=== PATIENT | female | born 1950 | race Caucasian/White ===

== ENCOUNTER 2020-04-22 13:59 | Outpatient (CLI) | payer MEDICARE, OTHER, SELFPAY ==
--- NOTE | ~2020-04-22 | MM_ITS ---
EXAMINATION: MM screening [facility] BI w rosanna HISTORY: Screening mammogram TECHNIQUE: Craniocaudal and mediolateral oblique 3-D tomosynthesis images were obtained and synthetic 2-D images were generated. CAD analysis was submitted and interpreted. COMPARISON: 10/18/2018, 06/12/2016 BREAST PARENCHYMAL COMPOSITION: The breasts are almost entirely fatty. FINDINGS: There is no evidence of suspicious mass, calcification, or architectural distortion to sugg est malignancy in either breast. There has been no suspicious interval change. IMPRESSION: 1. No mammographic evidence of malignancy. 2. Recommend routine screening mammography in one year. BI-RADS Category 1: Negative Reviewed, dictated and finalized at location A.
== END 2020-04-22 14:00 | disposition home or self-care (01) ==
PROVIDERS: PCP Internal Medicine; Visit Provider Internal Medicine
DX: Z12.31 Encounter for screening mammogram for malignant neoplasm of breast (principal)
CPT/HCPCS: 77063; 77067

== ENCOUNTER 2020-10-05 13:40 | Outpatient (CLI) | payer MEDICARE, OTHER, SELFPAY ==
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
== END 2020-10-05 13:41 | disposition home or self-care (01) ==
LOC: CHSIMG 13:44
PROVIDERS: PCP Internal Medicine; Visit Provider Internal Medicine
DX: M54.5 Low back pain (principal); M54.10 Radiculopathy, site unspecified
CPT/HCPCS: 72100

== ENCOUNTER 2021-04-15 14:22 | Outpatient (CLI) | payer MEDICARE, OTHER, SELFPAY ==
--- NOTE | ~2021-04-15 | XR_ITS ---
EXAMINATION: XR abdomen obstructive series DATE: 04/15/2021 14:44 INDICATION: Abdominal pain and constipation. Weight gain. TECHNIQUE: Supine and upright views of the abdomen. FINDINGS: No prior studies for comparison. The visualized lung parenchyma is normal.. There is a nonobstructive bowel gas pattern. Large amount of retained fecal material in the colon. Gas and stool are seen throughout the colon to the level of the rectum. There is no free air. Severe lumbar spondylosis with scoliosis. IMPRESSION: 1. No acute abdominal abnormality. Reviewed, dictated and finalized at location A.
== END 2021-04-15 14:23 | disposition home or self-care (01) ==
LOC: CHSIMG 14:25
PROVIDERS: PCP Internal Medicine; Visit Provider Nurse Practitioner Family
DX: R10.9 Unspecified abdominal pain (principal); K59.00 Constipation, unspecified
CPT/HCPCS: 74019

== ENCOUNTER 2022-01-30 11:53 | Outpatient (CLI) | payer MEDICARE, OTHER, SELFPAY ==
--- NOTE | ~2022-01-30 | XR_ITS ---
XR knee LT 3V 01/30/2022 12:39 Indication: Left knee pain. Patellar fracture 2 weeks ago. Procedure: 3 views of the left knee Comparison: No prior studies for comparison. Findings: There are transverse fractures of the patella without significant displacement. No signific ant joint effusion. No other fracture. No significant soft tissue abnormality. No foreign body. Impression: 1: Nondisplaced transverse fracture of the patella. Reviewed, dictated and finalized at location A. Impression: 1: Nondisplaced transverse fracture of the patella.
== END 2022-01-30 11:54 | disposition home or self-care (01) ==
LOC: CHSIMG 11:57
PROVIDERS: PCP Internal Medicine; Visit Provider Internal Medicine
DX: S82.002D Unspecified fracture of left patella, subsequent encounter for closed fracture with routine healing (principal)
CPT/HCPCS: 73562

== ENCOUNTER 2022-04-04 08:56 | Outpatient (CLI) | payer MEDICARE, OTHER, SELFPAY ==
--- NOTE | ~2022-04-04 | XR_ITS ---
EXAMINATION: XR chest 2V DATE: 04/04/2022 10:18 INDICATION: Chest and epigastric pain TECHNIQUE: Frontal and lateral views of the chest are obtained COMPARISON: 01/27/2015 FINDINGS: The lungs are free of acute opacities. No pleural effusion or pneumothorax. The cardiomedia stinal silhouette is normal. There is moderate thoracic spondylosis. Contrast from esophagram perform ed immediately prior to the chest radiograph is seen in the stomach and proximal small intestine. IMPRESSION: 1. No acute cardiopulmonary abnormality. Reviewed, dictated and finalized at location B.
--- NOTE | ~2022-04-04 | XR_ITS ---
EXAMINATION: XR barium swallow DATE: 04/04/2022 10:17 INDICATION: Dyspepsia TECHNIQUE: The patient drank thick barium, gas-producing crystals, and thin barium. Fluoroscopy of th e hypopharynx and esophagus was performed. Fluoroscopy exposure time was 1.5 minutes. The DAP for thi s procedure was 6.36 Gycm2. COMPARISON: None. FINDINGS: There is no mass or stricture of the esophagus. Esophageal motility is normal. There is no hiatal hernia. There was no gastroesophageal reflux with provocative maneuvers. IMPRESSION: 1. Unremarkable esophagram. Reviewed, dictated and finalized at location B. IMPRESSION: 1. Unremarkable esophagram.
--- NOTE | ~2022-04-04 | US_ITS ---
EXAMINATION: US abdomen limited DATE: 04/04/2022 09:41 INDICATION: Dyspepsia. Chest pain. TECHNIQUE: Multiple grayscale and Doppler ultrasound images of the abdomen were obtained. COMPARISON: None FINDINGS: The visualized portion of the pancreatic body is normal. Portions of the head and tail are obscured b y shadowing bowel gas. Visualized proximal inferior vena cava is normal. Liver has normal echogenicit y and contour, with a smooth surface. No liver lesion identified. No intrahepatic biliary duct dilati on suspected. Portal venous flow was seen in the hepatopetal, normal direction and has normal Doppler waveform. The gallbladder is normal in appearance. There is no cholelithiasis. The common bile duct measures 2-3 mm, which is normal. Sonographic Newton sign was reported as negative by the sonographe r. Visualized portion of the right kidney demonstrates normal echogenicity and contour with no hydron ephrosis. IMPRESSION: 1. Normal right upper quadrant ultrasound. Reviewed, dictated and finalized at location A.
== END 2022-04-04 08:57 | disposition home or self-care (01) ==
PROVIDERS: PCP Internal Medicine; Visit Provider Internal Medicine
DX: R10.13 Epigastric pain (principal); R07.9 Chest pain, unspecified
CPT/HCPCS: 71046; 74220; 76705

== ENCOUNTER 2022-10-19 11:58 | Outpatient (CLI) | payer MEDICARE, OTHER, SELFPAY ==
--- NOTE | ~2022-10-19 | MM_ITS ---
EXAMINATION: MM screening [facility] BI w rosanna HISTORY: Screening TECHNIQUE: Craniocaudal and mediolateral oblique 3-D tomosynthesis images were obtained and synthetic 2-D images were generated. CAD analysis was submitted and interpreted. COMPARISON: Comparison to multiple prior studies sequentially, with oldest reviewed study dated 04/14. BREAST PARENCHYMAL COMPOSITION: The breasts are almost entirely fatty. FINDINGS: There is no evidence of suspicious mass, calcification, or architectural distortion to sugg est malignancy in either breast. There has been no suspicious interval change. IMPRESSION: 1. No mammographic evidence of malignancy. 2. Recommend routine screening mammography in one year. BI-RADS Category 1: Negative Reviewed, dictated and finalized at location A.
== END 2022-10-19 11:59 | disposition home or self-care (01) ==
LOC: CHSIMG 12:00
PROVIDERS: PCP Internal Medicine; Visit Provider Internal Medicine
DX: Z12.31 Encounter for screening mammogram for malignant neoplasm of breast (principal)
CPT/HCPCS: 77063; 77067

== ENCOUNTER 2023-01-16 01:04 | Day surgery (SDC) | payer MEDICARE, OTHER, SELFPAY ==
[2023-01-08 13:05] VITALS: BMI 29.2
--- NOTE | 2023-01-15 13:13 | WPDANESEPPF ---
Anes - Initial Pre Proc Eval Procedure: Operation Date: 01/16/23 09:00 Proposed Procedures p Colonoscopy - Edmundo Hook MD Date/Time: 01/15/23 13:13 Surgeon: Edmundo Hook MD Pre Op Diagnosis: hx colon polyps Patient Data Age: 72 Gender: F Height: 1.68 m Weight: 82 kg Allergies Allergy/AdvReac Type Severity Reaction Status Date / Time codeine Allergy Unknown Unknown Verified 01/16/23 07:44 red dye Allergy Unknown extreme Verified 01/16/23 07:44 emesis and incontinence Home Medications Medication Instructions Recorded Confirmed Type ascorbate calcium (vitamin C) 500 100 mg PO DAILY 09/17/20 01/16/23 History mg tablet aspirin 81 mg tablet,delayed 81 mg PO DAILY 09/17/20 01/16/23 History release (Adult Low Dose Aspirin) diphenhydramine HCl 25 mg tablet 25 mg PO HS PRN Sleep 09/17/20 01/16/23 History (Benadryl Allergy) mirabegron 50 mg tablet,extended 50 mg PO HS 09/17/20 01/16/23 History release 24 hr (Myrbetriq) montelukast 10 mg tablet 10 mg PO HS 09/17/20 01/16/23 History naltrexone 50 mg tablet 50 mg PO DAILY 09/17/20 01/16/23 History bupropion HCl 100 mg tablet 100 mg PO DAILY 06/06/21 01/16/23 History levothyroxine 150 mcg capsule 150 mcg PO DAILY 06/06/21 01/16/23 History Lactobacillus 1 cap PO DAILY 01/08/23 01/16/23 History acidophilus-Bifidobac.animalis 2.5 billion cell capsule (Daily Probiotic) acetaminophen 325 mg tablet 325 mg PO Q4H PRN Pain 01/08/23 01/16/23 History albuterol sulfate 90 mcg/actuation 1 puff inhalation Q4H PRN 01/08/23 01/16/23 History aerosol inhaler Shortness Of Breath cyclobenzaprine 5 mg tablet 5 mg PO DAILY PRN Muscle Spasm 01/08/23 01/16/23 History docusate sodium 100 mg capsule 200 mg PO HS 01/08/23 01/16/23 History esomeprazole magnesium 40 mg 40 mg PO HS 01/08/23 01/16/23 History capsule,delayed release loratadine-pseudoephedrine ER 10 1 tablet PO DAILY 01/08/23 01/16/23 History mg-240 mg tablet,extended [id number] (Claritin-D 24 Hour) magnesium 500 mg tablet 500 mg PO DAILY 01/08/23 01/16/23 History multivitamin with minerals-folic 1 tablet PO DAILY 01/08/23 01/16/23 History acid 0.4 mg tablet polyethylene glycol 3350 17 17 g PO DAILY 01/08/23 01/16/23 History gram/dose oral powder (Miralax) rosuvastatin 20 mg tablet 20 mg PO HS 01/08/23 01/16/23 History Patient hx anesthesia problems: none Family hx anesthesia problems: none Results Review: All pre-operative results and documents have been reviewed as part of the pre-operative evaluation. [facility] Past Medical History Medical History (Updated 01/15/23 @ 13:14 by Ken Mackey DO) Asthma Belching Change in stool caliber Chronic constipation Dyslipidemia Epigastric pain Functional dyspepsia Gastric ulcer Hx of adenomatous polyp of colon Hypothyroidism Internal hemorrhoid Overweight (BMI 25.0-29.9) Scoliosis Family History Family History Mother Family history of thyroid disease Family history of obesity Family history of cataracts Family history of arthritis Family history of kidney disease Family history of congestive heart failure Family history of heart disease in male family member before age 55 Father Family history of obesity Family history of cataracts Family history of arthritis Family history of kidney disease Family history of Parkinson's disease Family history of Alzheimer's disease Family history of heart disease in male family member before age 55 Family history of hearing loss Social History Social History Smoking status: Former smoker Tobacco type: cigarettes Alcohol intake: current Drinks per week: 2 Substance use: current Substance use type: marijuana Other substance usage details: eidbles Living arrangements: with family Spiritual care conc
[2023-01-16 07:35] VITALS: BP 127/77; PULSE 86; RESP 18; TEMP 36.4; O2SAT 98; BMI 30.2
[2023-01-16] MEDS: LACTATED RINGERS 1,000 ML 150 ML IV CONT (07:57)
--- NOTE | 2023-01-16 09:08 | PM.HPGS ---
History of Present Illness History of Present Illness Consent: Risks, benefits, and alternatives have been discussed and questions answered. Patient agrees to proceed with procedure. Chief complaint: hx colon polyps Narrative: Kaelyn Barbour is a 72 year old female with polyps, last colonoscopy in 2018 Review of Systems Constitutional: Constitutional: Denies headache(s) and Denies weakness Eyes: Eyes: Denies blurry vision ENT: Reports Normal hearing present, Denies headache(s) and Denies neck pain Cardiovascular: Cardiovascular: Denies chest pain and Denies dyspnea Respiratory: Respiratory: Denies dyspnea Gastrointestinal: Gastrointestinal: Reports no additional gastrointestinal complaints Genitourinary: Genitourinary: Denies dysuria Musculoskeletal: Musculoskeletal: Denies neck pain Integumentary/Breasts: Skin/Breast: Denies dry skin Neurologic: Reports Normal hearing present, Denies headache(s) and Denies weakness Psychiatric: Psychiatric: Denies anxiety Endocrine: Endocrine: Denies change in body appearance Hematologic/Lymphatic: Hematologic/Lymphatic: Denies easy bleeding Allergic/Immunologic: Allergic/Immunologic: Denies urticaria PMFSH Past Medical History Medical History (Updated 01/15/23 @ 13:14 by Ken Mackey DO) Asthma Belching Change in stool caliber Chronic constipation Dyslipidemia Epigastric pain Functional dyspepsia Gastric ulcer Hx of adenomatous polyp of colon Hypothyroidism Internal hemorrhoid Overweight (BMI 25.0-29.9) Scoliosis Family History Family History Mother Family history of thyroid disease Family history of obesity Family history of cataracts Family history of arthritis Family history of kidney disease Family history of congestive heart failure Family history of heart disease in male family member before age 55 Father Family history of obesity Family history of cataracts Family history of arthritis Family history of kidney disease Family history of Parkinson's disease Family history of Alzheimer's disease Family history of heart disease in male family member before age 55 Family history of hearing loss Social History Social History Smoking status: Former smoker Tobacco type: cigarettes Alcohol intake: current Drinks per week: 2 Substance use: current Substance use type: marijuana Other substance usage details: eidbles Living arrangements: with family Spiritual care concerns: No Meds Home Medications and Allergies Home Medications Medication Instructions Recorded Confirmed Type ascorbate calcium (vitamin C) 500 100 mg PO DAILY 09/17/20 01/16/23 History mg tablet aspirin 81 mg tablet,delayed 81 mg PO DAILY 09/17/20 01/16/23 History release (Adult Low Dose Aspirin) diphenhydramine HCl 25 mg tablet 25 mg PO HS PRN Sleep 09/17/20 01/16/23 History (Benadryl Allergy) mirabegron 50 mg tablet,extended 50 mg PO HS 09/17/20 01/16/23 History release 24 hr (Myrbetriq) montelukast 10 mg tablet 10 mg PO HS 09/17/20 01/16/23 History naltrexone 50 mg tablet 50 mg PO DAILY 09/17/20 01/16/23 History bupropion HCl 100 mg tablet 100 mg PO DAILY 06/06/21 01/16/23 History levothyroxine 150 mcg capsule 150 mcg PO DAILY 06/06/21 01/16/23 History Lactobacillus 1 cap PO DAILY 01/08/23 01/16/23 History acidophilus-Bifidobac.animalis 2.5 billion cell capsule (Daily Probiotic) acetaminophen 325 mg tablet 325 mg PO Q4H PRN Pain 01/08/23 01/16/23 History albuterol sulfate 90 mcg/actuation 1 puff inhalation Q4H PRN 01/08/23 01/16/23 History aerosol inhaler Shortness Of Breath cyclobenzaprine 5 mg tablet 5 mg PO DAILY PRN Muscle Spasm 01/08/23 01/16/23 History docusate sodium 100 mg capsule 200 mg PO HS 01/08/23 01/16/23 History esomeprazole magnesium 40 mg 40 mg PO HS 01/08/23 01/16/23 History cap
[2023-01-16 09:35] VITALS: BP 105/62; PULSE 82; RESP 20; O2SAT 98
[2023-01-16 09:45] VITALS: BP 114/76; PULSE 80; RESP 20; O2SAT 100
[2023-01-16 09:55] VITALS: BP 126/74; PULSE 78; RESP 20; O2SAT 100
== END 2023-01-16 10:01 | disposition home or self-care (01) ==
PROVIDERS: PCP Internal Medicine; Visit Provider Internal Medicine Gastroenterology
PROC: 0DJD8ZZ Inspection of Lower Intestinal Tract, Via Natural or Artificial Opening Endoscopic (ICD-10-PCS; CPT 45378; principal; 2023-01-16 09:00)
DX: Z12.11 Encounter for screening for malignant neoplasm of colon (principal); K64.8 Other hemorrhoids; Z86.010 Personal history of colon polyps; J45.909 Unspecified asthma, uncomplicated; E78.5 Hyperlipidemia, unspecified; E03.9 Hypothyroidism, unspecified; Z87.891 Personal history of nicotine dependence; F12.90 Cannabis use, unspecified, uncomplicated; Z79.82 Long term (current) use of aspirin; Z79.51 Long term (current) use of inhaled steroids
CPT/HCPCS: G0105; J2704; J7120

== ENCOUNTER 2024-03-07 09:05 | Outpatient (CLI) | payer MEDICARE, SELFPAY ==
[2024-03-07 09:19] LABS: Hemoglobin 14.4 g/dL (11.7-13.8); Mean Corpuscular HGB Conc 32.7 g/dL (32-36); Mean Corpuscular Hemoglobin 30.9 pg (27.0-31.0); Mean Corpuscular Volume 94.4 fL (78.0-102.0); Mean Platelet Volume 9.1 fl (9.2-11.8); Platelet Count Result 220 K/mm3 (150-420); Red Blood Count 4.66 M/mm3 (4.20-5.40); Red Cell Distribution Width 12.7 % (11.6-14.4); White Blood Count 4.7 K/mm3 (4.8-10.8)
[2024-03-07 10:29] LABS: Alanine Aminotransferase 33 U/L (14-59); Albumin Level 3.7 g/dL (3.4-5.0); Alkaline Phosphatase 83 U/L (46-116); Anion Gap 7 mmol/L (4-12); Aspartate Amino Transferase 27 U/L (15-37); Bilirubin,Total 0.3 mg/dL (0.00-1.00); Blood Urea Nitrogen 24 mg/dL (7-18); Calcium 8.8 mg/dL (8.5-10.1); Carbon Dioxide 29 mmol/L (21-32); Chloride 102 mmol/L (98-108); Cholesterol 184 mg/dL (0-200); Estimated Glomerular Filt Rate 46; Glucose 102 mg/dL (70-99); HDL Direct 53 mg/dL (40-60); LDL Cholesterol Calculated 109 mg/dL (<130); Osmolality Calculated 290 mOsm/kg (285-295); Potassium 4.5 mmol/L (3.5-5.1); Sodium 138 mmol/L (136-145); Thyroid Stimulating Hormone 1.21 uIU/mL (0.36-3.74); Total Protein 7.1 g/dL (6.4-8.2); Triglycerides 108 mg/dL (0-150)
== END 2024-03-07 09:06 | disposition home or self-care (01) ==
LOC: CHSLAB 09:09
PROVIDERS: PCP Internal Medicine; Visit Provider Internal Medicine
DX: E78.5 Hyperlipidemia, unspecified (principal); E03.9 Hypothyroidism, unspecified; N39.0 Urinary tract infection, site not specified
CPT/HCPCS: 36415; 80053; 80061; 84443; 85027

== ENCOUNTER 2025-01-26 14:13 | Outpatient (CLI) | payer MEDICARE, OTHER, SELFPAY ==
--- NOTE | ~2025-01-26 | XR_ITS ---
Lumbosacral Spine: AP and lateral views Clinical History: Pain COMPARISON: 10/05/2020 Findings: Dextroscoliosis present, similar to prior exam. There is severe degenerative disc narrowing throughout the lumbar spine. There is severe facet arthropathy throughout the lumbar spine. No defin ite fracture evident. The sacroiliac joints are normally outlined. Impression: Severe degenerative spondylosis throughout the lumbar spine with associated dextroscoliosis. Findings are similar to prior exam. Reviewed, dictated and finalized at location M. Impression: Severe degenerative spondylosis throughout the lumbar spine with associated dex troscoliosis. Findings are similar to prior exam.
--- NOTE | ~2025-01-26 | XR_ITS ---
Thoracic spine: Clinical Indication: Back pain AP and lateral views were performed. No fracture is seen. There is normal alignment of the vertebrae. There is multilevel mild to moderat e degenerative disc narrowing throughout the thoracic spine. Paravertebral soft tissues appear normal . Impression: Multilevel mild to moderate degenerative disc narrowing throughout the thoracic spine. Reviewed, dictated and finalized at location . Impression: Multilevel mild to moderate degenerative disc narrowing throughout the thoracic spine.
--- OUTSIDE RECORDS SUMMARY | 2025-01-26 14:20 | XMS_ITS | Clinical Summary ---
Author Organization [facility] Address [address] [place] [id number] Care Team Providers Care Flanging Machine Operator Name Role Phone Reza Esquivel MD Primary Care Provider [phone] Allergies Active Allergy Reactions Criticality Noted Date Comments Codeine Hallucinations 02/06/2022 Red Dye #40 (Allura Red) Nausea Only 02/06/2022 Medications rosuvastatin (CRESTOR) 20 MG tablet Take 1 tablet by mouth daily. 2 Active Mirabegron (MYRBETRIQ OR) Take 1 tablet by mouth every evening. 9 Active ESOMEPRAZOLE MAGNESIUM OR Take 1 tablet by mouth every evening. 2 Active aspirin EC (ECOTRIN) 81 MG tablet Take 81 mg by mouth daily. Active montelukast (SINGULAIR) 10 MG tablet Take 10 mg by mouth daily. Active levothyroxine (SYNTHROID) 150 MCG tablet Take 1 tablet by mouth daily. 2 Active naltrexone (DEPADE) 50 MG tablet Take 1 tablet by mouth daily. 2 Active buPROPion (WELLBUTRIN) 100 MG tablet Take 1 tablet by mouth daily. 2 Active albuterol sulfate HFA 108 (90 Base) MCG/ACT inhaler Inhale 2 puffs into the lungs as needed. 2 Active Glucosamine-Cho ndroitin 9088-0283 MG/30ML Liquid Take 1 tablet by mouth daily. Active Ascorbic Acid 1000 MG Tab Take 1,000 mg by mouth daily. Active azelastine (ASTELIN) 0.1 % nasal spray 2 sprays by Nasal route 2 (two) times daily. 1 Active calcium carbonate 1250 (500 Ca) MG chewable tablet Chew 1 tablet by mouth. Active Magnesium Gluconate 500 MG Tab Take 1,000 mg by mouth 2 (two) times daily. Active mometasone (NASONEX) 50 MCG/ACT nasal spray 2 sprays by Tube route daily. 2 Active docusate sodium (COLACE) 100 MG capsule Take 100 mg by mouth 2 (two) times daily. Active diphenhydrAMINE (BENADRYL) 25 MG tablet Take 25 mg by mouth every 6 (six) hours as needed for Itching. Active loratadine (CLARITIN) 10 MG tablet Take 10 mg by mouth daily. Active PREMARIN 0.625 MG/GM vaginal cream Place 1 mg vaginally as needed. 2 Active Active Problems Problem Noted Date Diagnosed Date Other closed fracture of lef t patella with routine healing, subsequent encounter 02/06/2022 Family History Relation Status Comments Brother Alive Father Mother Social History Tobacco Use Types Packs/Day Years Used Date Smoking Tobacco: Former Smokeless Tobacco: Never Comments Unknown Sex and Gender Information Value Date Recorded Sex Assigned at Not on file Legal Sex Female 8:59 AM CDT Gender Identity Not on file Sexual Orientation Not on file Last Filed Vital Signs Vital Sign Reading Time Taken Comments Blood Pressure - - Pulse - - Temperature - - Respiratory Rate - - Oxygen Saturation - - Inhaled Oxygen Concentration - - Weight 81.6 kg (180 lb) 04/12/2022 10:42 AM CDT Height 165.1 cm (5' 5) 04/12/2022 10:42 AM CDT Body Mass Index 29.95 04/12/2022 10:42 AM CDT Plan of Treatment Health Maintenance Due Date Last Done Comments Colorectal Cancer Screening Colonoscopy (10 Years) 1950 Hepatitis C 1968 Mammogram Screening 1990 Zoster Vaccines (2 of 3) 08/04/2014 06/09/2014 Annual Medicare Wellness Visit 2015 Dexa Scan (General) 2015 Pneumococcal Vaccine: 50+ Years (3 of 3 - PCV20 or PCV21) 08/14/2021 08/14/2016, 05/20/2009 COVID-19 Vaccine ( - season) 2024 11/09/2021, 04/26/2021, 09/18/2020, Additional history exists RSV Immunization or 60+ Years (1 - 1-dose 75+ series) 2025 DTaP, Tdap and Td Vaccines (2 - Td or Tdap) 08/06/2025 08/06/2015, 06/26/2006 Meningococcal B Vaccine Aged Out No l onger eligible based on patient's age to complete this topic Meningococcal Vaccine Aged Out No meli marge eligible based on patient's age to complete this topic RSV Immunizations Under 20 Months Aged Out No longer eligible based on patient's age to complete this topic Insurance MEDICARE [place] [id number] Care Teams Flanging Machine Operator Relationship Specialty Start Date End Date Reza Esquivel MD [address] [place] [id number] PCP - General INTERNAL MEDICINE 01/31/22
--- OUTSIDE RECORDS SUMMARY | 2025-01-26 14:20 | XMS_ITS | Clinical Summary ---
Author Organization [facility] Address [address], [address] [address] Phone Care Team Providers Care Boat Builder Name Role Phone Reza Esquivel MD Primary Care Provider [phone] Allergies Active Allergy Reactions Criticality Noted Date Comments Codeine Hallucinations 11/29/2017 Medications losartan (COZAAR) 25 MG Tablet 11/07/2017 Active metoprolol Succinate (TOPROL-XL) 25 MG TABLET SR 24 HR 11/28/2017 Active montelukast (SINGULAIR) 10 MG Tablet 09/02/2017 Active mometasone (NASONEX) 50 MCG/ACT Suspension 11/09/2017 Active raNITIdine (ZANTAC) 150 MG Tablet 10/05/2017 Active levothyroxine (SYNTHROID) 200 MCG Tablet Take 200 mcg by mouth daily. Active aspirin EC 81 MG Tablet Delayed Response Take 81 mg by mouth daily. Active Family History Medical History Relation Name Comments Heart Attack Father Heart Attack Mother Relation Name Status Comments Father Mother Social History Tobacco Use Types Packs/Day Years Used Date Smoking Tobacco: Former Cigarettes 08 21 1 5 - 1994 Smokeless Tobacco: Never Alcohol Use Standard Drinks/Week Comments Yes 0 (1 standard drink = 0.6 oz pur e alcohol) rarely Sexually Active Control Partners Comments Yes Comments Unknown Sex and Gender Information Value Date Recorded Sex Assigned at Not on file Legal Sex Female 10:31 PM CDT Gender Identity Not on file Sexual Orientation Not on file 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 Not on file Not o n file Last Filed Vital Signs Vital Sign Reading Time Taken Comments Blood Pressure 110/76 12/31/2017 9:42 AM CDT Pulse 77 12/31/2017 9:42 AM CDT Temperature 36 C (96.8 F) 12/31/2017 9:42 AM CDT Respiratory Rate 18 12/31/2017 9:42 AM CDT Oxygen Saturation 99% 12/31/2017 9:42 AM CDT Inhaled Oxygen Concentration - - Weight 94.8 kg (209 lb) 11/29/2017 9:00 AM CDT Height 165.1 cm (5' 5) 11/29/2017 9:00 AM CDT Body Mass Index 34.78 11/29/2017 9:00 AM CDT Plan of Treatment Health Maintenance Due Date Last Done Comments Hepatitis C Virus (HCV) Screening 1950 TdaP Immunization 1950 Cologuard 1995 Immunochemical Fecal Occult Blood 1995 Pneumococcal Immunization (5 0+ years) (1 of 1 - PCV) 2000 Zoster Immunization (1 of 2) 2000 Colonoscopy 12/31/2022 12/31/2017 Colorectal Cancer Screening 12/31/2022 SARS-COV-2 Immunization ( - 2023- season) 2024 Influenza Immunization (Seas on Ended) 2025 Respiratory Syncytial Virus (RSV) Immunization (Adult) (1 - 1-dose 75+ series) 2025 Hepatitis B Immunization Aged Out No longer eligible based on patient's age to complete this topic Human Papillomavirus (HPV) Immunization Aged Out No longer eligible b ased on patient's age to complete this topic Meningococcal Immunization (ACWY) Aged Out No longer eligible based on patient's age to complete this topic Rotavirus Immunization Aged Out No lo nger eligible based on patient's age to complete this topic Insurance MEDICARE [employer] Care Teams Boat Builder Relationship Specialty Start Date End Date Reza Esquivel MD [address] [place] [address] PCP - General Internal Medicine 11/23/17
--- OUTSIDE RECORDS SUMMARY | 2025-01-26 14:21 | XMS_ITS | Encounter Summary ---
Author Organization [facility] Address [address] [place] [address] Care Team Providers Care Python Engineer Name Role Phone Reza Esquivel MD Primary Care Provider [phone] Encounter Details Date Type Department Care Team (Late st Contact Info) Description 02/06/2022 Oktat Message Enc [address] [place] [address] Vera Ramirez, [facility] [address] [place] [address] Visit Follow Up Social History Tobacco Use Types Packs/Day Years Used Date Smoking Tobacco: Former Smokeless Tobacco: Never Comments Unknown Sex and Gender Information Value Date Recorded Sex Assigned at Not on file Legal Sex Female 8:59 AM CDT Gender Identity Not on file Sexual Orientation Not on file COVID-19 Exposure Response Date Recorded In the last 10 days, have yo u been in contact with someone who was confirmed or suspected to have Coronavirus/COVID-19? No / Unsure 02/06/2022 10:43 AM CDT documented as of this encounter Plan of Treatment Not on file documented as of this encounter Visit Diagnoses Not on filedocumented in this encounter Care Teams Python Engineer Relationship Specialty Start Date End Date Reza Esquivel MD [address] [place] [address] PCP - General INTERNAL MEDICINE 01/31/22 documented as of this encounter
--- OUTSIDE RECORDS SUMMARY | 2025-01-26 14:21 | XMS_ITS | Referral Summary ---
Author Organization [facility] [address] Address [address] [place] [address] Care Team Providers Care Keno Writer/Runner Name Role Phone Reza Esquivel MD Primary Care Provider [phone] Kevin Perez MD Unavailable Allergies Active Allergy Reactions Criticality Noted Date Comments Alirocumab Unknown 05/05/2019 Codeine Hallucinations Medium 11/29/2017 Ezetimibe Unknown 05/05/2019 Losartan Dizziness,Fatigue Low 05/08/2018 Nortriptyline Other (See comments) Low 05/08/2018 Leg pain Red Dye Other (See comments) Low 09/10/2019 Pt states red dye makes her gag and urinate uncontrollably. Medications docusate sodium (STOOL SOFTENER) 100 mg capsule take 1 capsule by oral route every day at bedtime as needed 0 0 08/13/19 16 Active albuterol HFA (PROVENTIL HFA,VENTOLIN HFA) 90 mcg/actuation inhaler inhale 2 puff by inhalation route every 4 - 6 hours as needed 0 Inhaler 0 12/21/19 16 Active fexofenadine (JOHANNA) 180 mg tablet Take 1 tablet (180 mg total) by mouth daily Active ascorbic acid (VITAMIN C) 1,000 mg tablet Take 1 tablet (1,000 mg total) by mouth daily Active magnesium gluconate (MAGONATE) 27.5 mg magne- sium (500 mg) tabletIndications:h ypomagnesemia Take 2 tablets (1,000 mg total) by mouth 2 (two) times a day Active rosuvastatin (CRESTOR) 10 mg tablet Take 1 tablet (10 mg total) by mouth daily 30 tablet 3 02/19/20 19 Active MYRBETRIQ 50 mg tablet extended release 24 hr Take 1 tablet (50 mg total) by mouth daily 05/19/20 19 Active calcium carbonate (TUMS) 500 mg calcium (200 mg of elemental calcium) chewable tablet Take 1 tablet/chew tab (500 mg total) by mouth daily as needed for heartburn PRN Active meclizine (ANTIVERT) 12.5 mg tablet Take 1 tablet (12.5 mg total) by mouth 3 (three) times a day as needed for dizziness Active aspirin 81 mg enteric coated tablet Take 1 tablet (81 mg total) by mouth daily Active metoprolol XL (TOPROL-XL) 25 mg 24 hr tabletIndications:h ypertension Take 1 tablet (25 mg total) by mouth daily Active montelukast (SINGULAIR) 10 mg tabletIndications:A llergic Rhinitis Take 1 tablet (10 mg total) by mouth daily Active olopatadine 0.6 % spray,non-aerosolIn dications:Allergic Rhinitis Administer 0.6 % into affected nostril(s) 2 (two) times a day Active raNITIdine (ZANTAC) 150 mg tablet Take 1 tablet (150 mg total) by mouth nightly Active glucosam-chondroiti n-diet cb25 116-100 mg capsule Take by mouth Activ e mometasone (NASONEX) 50 mcg/actuation nasal sprayIndications:Al lergic rhinitis, unspecified seasonality, unspecified trigger USE 2 SPRAYS IN EACH NOSTRIL DAILY 17 g 11 09/21/[address] (NexIUM) 40 mg capsule 05/12/20 22 Active buPROPion (WELLBUTRIN) 100 mg tablet Take by mouth daily 11/12/19 19 Active naltrexone (DEPADE) 50 mg tablet Take 1 tablet (50 mg total) by mouth daily 07/19/20 19 Active loratadine-pseudoep hedrine (CLARITIN-D 24-hour) 10-240 mg per 24 hr tablet Take 1 tablet by mouth daily Active levothyroxine (SYNTHROID) 150 mcg tablet 12/02/19 23 Active triamcinolone (NASACORT) 55 mcg nasal inhalerIndications: Allergic rhinitis, unspecified seasonality, unspecified trigger Administer 1 spray into each nostril 2 (two) times a day 1 g 3 01/11/20 23 Active Additional Information Patient not taking.Reported on 06/22/2023 cetirizine (ZyrTEC) 10 mg tabletIndications:N on-seasonal allergic rhinitis due to pollen Take 1 tablet (10 mg total) by mouth daily 90 tablet 3 01/11/20 23 Active tobramycin-dexAMETH asone (TOBRADEX) ophthalmic solutionIndications :Otorrhea of left ear 7 drops into Left EAR, NOT EYE, twice daily for 14 days 10 mL 1 06/22/20 23 Active Additional Information Patient not taking.Reported on 02/25/2024 ciprofloxacin (CILOXAN) 0.3 % ophthalmic solutionIndications :Otorrhea of left ear 7 drops into Left EAR, NOT EYE, twice daily for 10 days 10 mL 1 07/11/20 23 Active Additional Information Patient not taking.Reported on 02/25/2024 azithromycin (Zithromax Z-Olivier) 250 mg tabletIndications:A cute nasopharyngitis Take 2 tablets by mouth on Day 1 and then take 1 tablet by mouth on Days 2-5 6 tablet 08/23/19 24 Active Additional Information Patient not taking.Reported on 02/25/2024 latanoprost (XALATAN) 0.005 % ophthalmic solution 12/14/19 24 Active azithromycin (Zithromax Z-Olivier) 250 mg tabletIndications:A cute recurrent maxillary sinusitis Two tablets by mouth on Day 1, one tablet by mouth Days 2-5 6 tablet 12/24/19 24 Active Additional Information Patient not taking.Reported on 02/25/2024 fluticasone propionate (FLONASE) 50 mcg/actuation nasal sprayIndications:[place] recurrent maxillary sinusitis Administer 2 sprays into each nostril daily 3 each 3 12/24/19 24 Active azelastine (ASTELIN) 137 mcg (0.1 %) nasal sprayIndications:Al lergic rhinitis, unspecified seasonality, unspecified trigger Administer 2 sprays into each nostril 2 (two) times a day Use in each nostril as directed 90 mL 3 12/24/19 24 Active Active Problems Problem Noted Date Diagnosed Date Acute nasopharyngitis 08/23/2023 Assessment & Plan (08/23/2023 2:10 PM ASSEMBLY MACHINE FEEDER): Recheck Covid test in 3 days if symptoms persist Start Zpak if no improvement in sinus symptoms over the ext 3 days T-tube removed from the left ear today, finish ear drops Follow up in 4 months Cellulitis of nasal tip 07/11/2023 Assessment & Plan (07/11/2023 10:58 AM ASSEMBLY MACHINE FEEDER): Stop Tobramycin Start Ciprofloxacin 7 drops into Left EAR, NOT EYE, twice daily for 10 days Nasal saline spray (Simply saline, Little Remedies, [place], [place]) 2 second sprays or 2 squeezes into each nostril while looking down over the sink, do not need to sniff in. Stop Astelin Aquaphor apply pea-size amount into each nostril with a cotton tipped applicator, being carefully just to tuck it into each nostril, then massage soft portion of the outer nose to massage the ointment around inside the nose 3-4 times per day Otorrhea of left ear 06/22/2023 Assessment & Plan (08/23/2023 2:10 PM ASSEMBLY MACHINE FEEDER): Recheck Covid test in 3 days if symptoms persist Start Zpak if no improvement in sinus symptoms over the ext 3 days T-tube removed from the left ear today, finish ear drops Follow up in 4 months Assessment & Plan (07/11/2023 10:58 AM ASSEMBLY MACHINE FEEDER): Stop Tobramycin Start Ciprofloxacin 7 drops into Left EAR, NOT EYE, twice daily for 10 days Nasal saline spray (Simply saline, Little Remedies, [place], [place]) 2 second sprays or 2 squeezes into each nostril while looking down over the sink, do not need to sniff in. Stop Astelin Aquaphor apply pea-size amount into each nostril with a cotton tipped applicator, being carefully just to tuck it into each nostril, then massage soft portion of the outer nose to massage the ointment around inside the nose 3-4 times per day Assessment & Plan (06/22/2023 2:52 PM ASSEMBLY MACHINE FEEDER): Tobradex 7 drops into LEFT EAR, NOT EYE, twice daily for 14 days Avoid ear cleaning techniques Avoid water to ears Nasal saline spray (Simply saline, [employer] Remedies, [place], [place]) 2 second sprays or 2 squeezes into each nostril while looking down over the sink, do not need to sniff in 2-3 times per day Humidifier at bedside May need to pull T-tube if no improvement Sensorineural hearing loss ( SNHL) of left ear with unrestricted hearing of right ear 01/10/2023 Assessment & Plan (01/10/2023 11:03 AM CDT): Hearing test [facility] E[facility] (Eustachian tube dysfunction), left 07/12/20 Assessment & Plan (07/12/2022 12:14 PM ASSEMBLY MACHINE FEEDER): Left myringotomy with T-tube placement in the Office today Risks and complications discussed including anesthesia, bleeding, infection, hearing loss, ear tubes may fall out early, fall inwards, stay in longer than a few years, get clogged, fall out and leave a hole in the ear drum that would need to be patched, drain clear fluid. No guarantee that all ear pain will resolve with ear tube placement, follow up with Dentist for TMJ dysfunction Ciprofloxacin 5 drops into LEFT EAR, NOT EYE, twice daily for 5 days How to Use Ear Drops discussed and Handout provided Impacted cerumen of right ear 03/22/2021 Assessment & Plan (03/22/2021 12:50 PM CDT): Avoid ear cleaning techniques Avoid water to ears Allergic rhinitis 12/17/2019 Assessment & Plan (12/24/2023 1:21 PM CDT): Zpak with a meal daily Flonase 1 sprays into each nostril while looking down over the sink, do not sniff in or blow nose after use for at least 30 minutes And Astelin (azelastine) 1 sprays into each nostril while looking down over the sink, do not sniff in or blow nose after use for at least 30 minutes twice daily Follow up in 6-8 weeks if left ear fluid not gone, Hearing test at follow up and will plan to replace ear tube Assessment & Plan (01/10/2023 10:57 AM CDT): Nasal saline spray (Simply saline, Little Remedies, [place], [place]) 2 second sprays or 2 squeezes into each nostril while looking down over the sink, do not need to sniff in. Astelin 1 spray and Nasonex 1 spray into each nostril twice daily May use Sudafed as needed Switch from Claritin to Cetirizine (Zyrtec) 10 mg daily Follow up in 9 months for ear tube check Assessment & Plan (05/26/2022 5:02 PM CDT): Will extend Doxycycline for one more week Hearing test in one month If no improvement in left middle ear effusion, will recommend Left myringotomy with T-tube placement in the Office Continue Astelin, Nasocort, Claritin-D or Sudafed and continue [facility] Assessment & Plan (03/22/2021 12:50 PM CDT): Continue Astelin, Nasonex, Claritin-D Follow up as needed Avoid ear cleaning techniques Avoid water to ears Assessment & Plan (12/17/2019 4:41 PM CDT): Ibuprofen 400 mg and Tylenol 500 mg every 6 hours as needed for pain Continue Maribel and Johanna Referred otalgia of left ear 12/17/2019 Assessment & Plan (12/17/2019 4:41 PM CDT): Ibuprofen 400 mg and Tylenol 500 mg every 6 hours as needed for pain Continue Astelin and Johanna Call dentist office for check up TMJ dysfunction discussed and Handout provided Chronic maxillary sinusitis 12/05/2019 Assessment & Plan (12/05/2019 10:50 AM CDT): CT Sinus - consider Sinus Surgery based on imaging Risks and complications include anesthesia, bleeding, infection, injury to surrounding structures including brain with csf leak, eyes with vision changes, nasal mucosa, atrophic rhinitis, benign versus malignant pathology, no guarantee that sense of smell will return, need for further surgery. Continue current allergy therapy Chronic otitis media of left ear with effusion 0 12/05/2019 Assessment & Plan (02/25/2024 3:57 PM CDT): Resolved Continue Flonase until first rojas Follow up as needed Assessment & Plan (12/24/2023 1:21 PM CDT): Zpak with a meal daily Flonase 1 sprays into each nostril while looking down over the sink, do not sniff in or blow nose after use for at least 30 minutes And Astelin (azelastine) 1 sprays into each nostril while looking down over the sink, do not sniff in or blow nose after use for at least 30 minutes twice daily Follow up in 6-8 weeks if left ear fluid not gone, Hearing test at follow up and will plan to replace ear tube Assessment & Plan (07/12/2022 10:27 AM ASSEMBLY MACHINE FEEDER): Left myringotomy with T-tube placement in the Office today Risks and complications discussed including anesthesia, bleeding, infection, hearing loss, ear tubes may fall out early, fall inwards, stay in longer than a few years, get clogged, fall out and leave a hole in the ear drum that would need to be patched, drain clear fluid. No guarantee that all ear pain will resolve with ear tube placement, follow up with Dentist for TMJ dysfunction Ciprofloxacin 5 drops into LEFT EAR, NOT EYE, twice daily for 5 days How to Use Ear Drops Assessment & Plan (05/26/2022 11:39 AM CDT): Will extend Doxycycline for one more week Hearing test in one month If no improvement in left middle ear effusion, will recommend Left myringotomy with T-tube placement in the Office Continue Astelin, Nasocort, Claritin-D or Sudafed and continue [facility] Follow up in 4-6 weeks to recheck left ear, if middle ear fluid still present and Conductive hearing loss noted on hearing test, will place ear tube in Office at that visit Assessment & Plan (12/05/2019 10:50 AM CDT): Hearing test - Dr. Melton in [place] Consider left ear tube placement at time of Sinus Surgery Acute maxillary sinusitis 07/28/2019 Assessment & Plan (12/24/2023 1:21 PM CDT): Zpak with a meal daily Flonase 1 sprays into each nostril while looking down over the sink, do not sniff in or blow nose after use for at least 30 minutes And Astelin (azelastine) 1 sprays into each nostril while looking down over the sink, do not sniff in or blow nose after use for at least 30 minutes twice daily Follow up in 6-8 weeks if left ear fluid not gone, Hearing test at follow up and will plan to replace ear tube Assessment & Plan (08/28/2019 11:22 AM ASSEMBLY MACHINE FEEDER): Doxcycline twice daily Diflucan if needed Take Probiotic Culturelle at a different meal [address] Sinus right before follow up Switch to Azelastine 2 sprays into each nostril twice daily Assessment & Plan (07/28/2019 3:09 PM ASSEMBLY MACHINE FEEDER): Cefdinir with a meal daily for 21 days Nasal saline spray (Simply saline, Little Remedies, [place], [place]) 2 second sprays or 2 squeezes into each nostril while looking down over the sink, do not need to sniff in. Nasonex 2 sprays into each nostril while looking down over the sink, do not sniff in or blow nose after use. Diflucan if needed Follow up in one month, recheck left maxillary sinus and left ear, if improved, will send for hearing test Coronary arteriosclerosis in [place] artery 04/14 Overview (10/26/2016): CAD in [place] artery Edema of lower extremity 04/14/2016 Overview (10/26/2016): Leg edema, right Essential hypertension 12/21/2015 Overview (10/26/2016): Essential hypertension Statin intolerance 12/21/2015 Overview (10/26/2016): Statin intolerance Multiple-type hyperlipidemia 12/21/2015 Overview (10/26/2016): Mixed hyperlipidemia Resolved Problems Problem Noted Date Diagnosed Date Resolved Date Chest pain 12/21/2015 04/23/2017 Overview (10/26/2016): Chest pain in adult Shortness of breath 12/21/2015 04/23/20 17 Overview (10/26/2016): SOB (shortness of breath) Immunizations Immunization Administration Dates Next Due Influenza, Unspecified 05/07/2019 Social History Tobacco Use Types Packs/Day Years Used Date Smoking Tobacco: Former Cigarettes Q uit: 1994 Smokeless Tobacco: Never Tobacco Cessation:Counseling Given: Not Answered Alcohol Use Standard Drinks/Week Comments Yes 2 (1 standard drink = 0.6 oz pur e alcohol) AUDIT-C Answer Date Recorded Frequency of Alcohol Consumption Monthly or less 09/10/2019 Average Number of Drinks 1 or 2 020 Frequency of Binge Drinking Never 08/23 PHQ-2 Answer Date Recorded PHQ-2 Score 0 09/10/2019 Personal Safety Answer Date Recorded Getting School Help Needed Not on file 07/03 Comments No Sex and Gender Information Value Date Recorded Sex Assigned at Not on file Legal Sex Female 12:14 PM ASSEMBLY MACHINE FEEDER Gender Identity Not on file Sexual Orientation Not on file Last Filed Vital Signs Vital Sign Reading Time Taken Comments Blood Pressure 127/82 12/24/2023 12:54 PM CDT Pulse 91 12/24/2023 12:54 PM CDT Temperature 36.6 C (97.8 F) 08/23/2023 1:45 PM ASSEMBLY MACHINE FEEDER Respiratory Rate 18 12/24/2023 12:54 PM CDT Oxygen Saturation 94% 12/24/2023 12:54 PM CDT Inhaled Oxygen Concentration - - Weight 90.3 kg (199 lb 1.6 oz) 02/25/2024 3:31 P M CDT Height 165.1 cm (5' 5) 02/25/2024 3:31 PM CDT Body Mass Index 33.13 02/25/2024 3:31 PM CDT Plan of Treatment Not on file Procedures Procedure Name Priority Date/Time Associated Diagnosis Comments COLONOSCOPY 01/02/2014 12:00 AM CDT from Last 3 Months or Most Recently Relevant to Health Maintenance Results * COLONOSCOPY (01/02/2014 12:00 AM CDT) Anatomical Region Laterality Modality Other Narrative 01/02/2014 12:00 AM CDT Ordered by an unspecified provider. Procedure Note Provider, MD Elbert - 01/02/2014 12:00 AM CDT PROCEDURE REPORT Patient: ASIA BARBOUR Account: [id number] Room No: : 1950 Patient Type: SDS Attend.: Joseph Farnsworth M.D. Admit Date: 01/02/2014 Dict.: Joseph Farnsworth M.D. Disch. Date: 01/02/2014 NAME OF PROCEDURE: Colonoscopy with polypectomy by cold biopsy forceps. INDICATIONS: Screening for colon cancer. DATE OF PROCEDURE: 01/02/14 PRIMARY CARE PHYSICIAN: Dr. Esquivel. BRIEF HISTORY AND PHYSICAL: The patient is a 63-year-old white female.No family history of colon cancer. the last colonoscopy was more than 10years ago. The patient presented for screening colonoscopy. PROCEDURE: Sedation was provided by anesthesia service. The procedureof colonoscopy including indications and possible complications ofbleeding, infection, perforation requiring surgery were discussed with the patientand consent was obtained. Rectal exam prior to colonoscopy was unremarkable.The scope was introduced into the rectum and advanced to the cecum, whichwas identified by the ileocecal valve and appendiceal orifice. The quality ofthe colon preparation was excellent. The terminal ileum was intubated andappeared normal. The cecum, ascending colon and transverse colon were normal.There was small one small 3 mm flat polyp in the descending colon removed withcold biopsy forceps. The sigmoid colon and rectum were unremarkable.Retroflex view of the rectum showed small internal hemorrhoids. IMPRESSION: 1) Small internal hemorrhoids. 2) Small 3 mm flat polyp in the descending colon removed by coldbiopsy forceps. RECOMMENDATIONS: Follow pathology report and repeat colonoscopy forscreening for colon cancer in 5-10 years. Jackie Mansfield/saeed TD: 01/03/2014 16:09 CC: Dr. Esquivel Authenticated by Joseph Farnsworth MD On 01/08/2014 05:05:38 PM us Historical Provider ENDOSCOPY PROCEDURES Berna l Result from Last 3 Months or Most Recently Relevant to Health Maintenance Insurance MEDICARE COMMERCIAL GENERIC MEDICARE COMMERCIAL GENERIC Advance Directives For more information, please contact: [phone] * Full Code (Latest Code Status on File) Date Activated Date Inactivated Comments 09/10/2019 4:24 AM 09/10/2019 9:09 PM Care Teams Keno Writer/Runner Relationship Specialty Start Date End Date Reza Esquivel MD PCP - General 10/20/16 Kevin Perez MD Consulting Physician Cardiology 09/10/19
--- OUTSIDE RECORDS SUMMARY | 2025-01-26 14:21 | XMS_ITS | Clinical Summary ---
Author Organization [facility] [place] [address] [facility] [address] Address [address] [place] [address] Care Team Providers Care Manager Critical Care Unit Name Role Phone Reza Esquivel MD Primary Care Provider [phone] Kevin Perez MD Unavailable [phone] Allergies Active Allergy Reactions Criticality Noted Date [...] fluticasone propionate (FLONASE) 50 mcg/actuation nasal sprayIndications:Ac [place] recurrent maxillary sinusitis Administer 2 sprays into [...] 08/23/2023 Assessment & Plan (08/23/2023 2:10 PM WORK AND FAMILY LIFE CONSULTANT): Recheck Covid test in 3 days if symptoms persist Start Zpak if no improvement in sinus symptoms over the ext 3 days T-tube removed from the left ear today, finish ear drops Follow up in 4 months Cellulitis of nasal tip 07/11/2023 Assessment & Plan (07/11/2023 10:58 AM WORK AND FAMILY LIFE CONSULTANT): Stop Tobramycin Start Ciprofloxacin 7 drops into Left EAR, NOT EYE, twice daily for 10 days Nasal saline spray (Simply saline, Little Remedies, [place], [place]) 2 second sprays or 2 squeezes into [...] 06/22/2023 Assessment & Plan (08/23/2023 2:10 PM WORK AND FAMILY LIFE CONSULTANT): Recheck Covid test in 3 days if symptoms persist Start Zpak if no improvement in sinus symptoms over the ext 3 days T-tube removed from the left ear today, finish ear drops Follow up in 4 months Assessment & Plan (07/11/2023 10:58 AM WORK AND FAMILY LIFE CONSULTANT): Stop Tobramycin Start Ciprofloxacin 7 drops into Left EAR, NOT EYE, twice daily for 10 days Nasal saline spray (Simply saline, Little Remedies, [place], [place]) 2 second sprays or 2 squeezes into [...] day Assessment & Plan (06/22/2023 2:52 PM WORK AND FAMILY LIFE CONSULTANT): Tobradex 7 drops into LEFT EAR, NOT EYE, twice daily for 14 days Avoid ear cleaning techniques Avoid water to ears Nasal saline spray (Simply saline, Little Remedies, [place], [place]) 2 second sprays or 2 squeezes into [...] 07/12/20 Assessment & Plan (07/12/2022 12:14 PM WORK AND FAMILY LIFE CONSULTANT): Left myringotomy with T-tube placement in the [...] Nasal saline spray (Simply saline, Little Remedies, [place], [place]) 2 second sprays or 2 squeezes into [...] Astelin, Nasocort, Claritin-D or Sudafed and continue [facility] Assessment [...] tube Assessment & Plan (07/12/2022 10:27 AM WORK AND FAMILY LIFE CONSULTANT): Left myringotomy with T-tube placement in the [...] Astelin, Nasocort, Claritin-D or Sudafed and continue [facility] Follow up in 4-6 weeks to recheck left ear, if middle ear fluid still present and Conductive hearing loss noted on hearing test, will place ear tube in Office at that visit Assessment & Plan (12/05/2019 10:50 AM CDT): Hearing test - Dr. Melton in [place] Consider left ear tube placement at time [...] tube Assessment & Plan (08/28/2019 11:22 AM WORK AND FAMILY LIFE CONSULTANT): Doxcycline twice daily Diflucan if needed Take Probiotic Culturelle at a different meal [address] Sinus right before follow up Switch to Azelastine 2 sprays into each nostril twice daily Assessment & Plan (07/28/2019 3:09 PM WORK AND FAMILY LIFE CONSULTANT): Cefdinir with a meal daily for 21 days Nasal saline spray (Simply saline, Little Remedies, [place], [place]) 2 second sprays or 2 squeezes into [...] send for hearing test Coronary arteriosclerosis in [place] artery 04/14 Overview (10/26/2016): CAD in [place] artery Edema of lower extremity 04/14/2016 Overview [...] Administration Dates Next Due Influenza, Unspecified 05/07/2019 Surgical History Surgery Date Site/Laterality Comments EYE SURGERY ECTOPIC 07/23/1982 - 07/22/1983 N/A SKIN BIOPSY Medical History Medical History Date Comments Gastroesophageal reflux disease GERD Hypothyroidism Hypothyroidism Arthritis Asthma Coronary artery disease Hypertension Family History Medical History Relation Name Comments Alzheimer's disease Father Arthritis Father Asthma Father Cancer Father Hearing loss Father Heart attack Father Heart disease Father Hyperlipidemia Father Hypertension Father Memory loss Father Other Father Heart dz and an tucker, Parkinson's, dementia; Stroke Father Vision loss Father Arthritis Mother Heart disease Mother Hypertension Mother Other Mother Had heart murmu r; Relation Name Status Comments Father Mother Social [...] on file Legal Sex Female 12:14 PM WORK AND FAMILY LIFE CONSULTANT Gender Identity Not on file Sexual Orientation Not on file Obstetrics History Last Filed Vital Signs Vital Sign Reading Time Taken Comments Blood Pressure 127/82 12/24/2023 12:54 PM CDT Pulse 91 12/24/2023 12:54 PM CDT Temperature 36.6 C (97.8 F) 08/23/2023 1:45 PM WORK AND FAMILY LIFE CONSULTANT Respiratory Rate 18 12/24/2023 12:54 PM CDT Oxygen Saturation 94% 12/24/2023 12:54 PM CDT Inhaled Oxygen Concentration - - Weight 90.3 kg (199 lb 1.6 oz) 02/25/2024 3:31 P M CDT Height 165.1 cm (5' 5) 02/25/2024 3:31 PM CDT Body Mass Index 33.13 02/25/2024 3:31 PM CDT Plan of Treatment Health Maintenance Due Date Last Done Comments Breast Cancer Screening-Mammogram 1950 Fall Risk Assessment 1950 Hepatitis C Screening 1950 Osteoporosis Screening-Bone Density Scan 1950 Hepatitis B Screening 1968 Zoster Vaccine (2 of 3) 08/04/2014 06/09/2014 Well Visit 65+ 2015 Depression Screening 09/09/2020 09/09/2019, 09/09/19 20 Pneumococcal vaccine 65+ (3 of 3 - PCV20 or PCV21) 08/14/2021 08/14/2016, 05/20/2009 Colon Cancer Screening-Colonoscopy 01/03/2024 01/02/2014 Influenza Vaccine (Season Ended) 2025 05/07/2019, 05/06/2019, 04/09/2018, Additional history exists DTaP/Tdap/Td Vaccine (2 - Td or Tdap) 08/06/2025 08/06/2015, 06/26/2006 Colon Cancer Screening-CT Colonography Discontinued 01/02/2014 Colon Cancer Screening-DNA Stool Discontinued 01/03/20 14 Colon Cancer Screening-FIT Discontinued 01/02/2014 Colon Cancer Screening-Sigmoidoscopy Discontinued 01/02/2014 Procedures Procedure Name Priority Date/Time Associated Diagnosis Comments COLONOSCOPY 01/02/2014 12:00 AM CDT from Last 3 Months or Most Recently Relevant to Health Maintenance Results * COLONOSCOPY (01/02/2014 12:00 AM CDT) Anatomical Region Laterality Modality Other Narrative 01/02/2014 12:00 AM CDT Ordered by an unspecified provider. Procedure Note Provider, MD Elbert - 01/02/2014 12:00 AM CDT PROCEDURE REPORT Patient: ASIA BARBOUR Account: [id number] Room No: : 1950 Patient Type: SDS [...] forscreening for colon cancer in 5-10 years. Joseph Farnsworth M.D. AK/jesúst TD: 01/03/2014 16:09 CC: Dr. Esquivel Authenticated by Joseph Farnsworth MD On 01/08/2014 05:05:38 PM us Historical Provider ENDOSCOPY PROCEDURES Berna l Result from Last 3 Months or Most Recently Relevant to Health Maintenance Insurance MEDICARE COMMERCIAL GENERIC MEDICARE COMMERCIAL GENERIC Advance Directives For more information, please contact: [phone] * Full Code (Latest Code Status on File) Date Activated Date Inactivated Comments 09/10/2019 4:24 AM 09/10/2019 9:09 PM Care Teams Manager Critical Care Unit Relationship Specialty Start Date End Date Reza Esquivel MD PCP - General 10/20/16 Kevin Perez MD Consulting Physician Cardiology 09/10/19
== END 2025-01-26 14:14 | disposition home or self-care (01) ==
LOC: CHSLAB 14:17
PROVIDERS: PCP Internal Medicine; Visit Provider Internal Medicine
DX: M54.50 Low back pain, unspecified (principal); M43.06 Spondylolysis, lumbar region; M41.86 Other forms of scoliosis, lumbar region
CPT/HCPCS: 72072; 72100

== ENCOUNTER 2025-02-02 12:49 | Outpatient (RCR) | payer MEDICARE, OTHER, SELFPAY ==
--- NOTE | 2025-02-02 14:01 | PTOPEVAL1 ---
Assessment and note entered by Jeevan Perez Evaluation Information Assessment Status Evaluation ICD-10 Condition Codes (PT) Pain in low back M54.50,Radiculopathy, lumbar region M54.16 Onset 12/22/24 Subjective Information Pt. reports she initially experienced pain in December . She states that she was rotating a mattress in her home. She describes her pain on the right side from the low back to the mid back. She states that her pain is constant. She reports that she had x-ray which revealed arthritis in her back. She states that pain will wake her at night. She states that she is currently using a cane for ambulation. She states that she can only stand for about 5 minutes due to pain. She states that she is limited in getting objects off the floor and avoids bending due to pain. She reports pain is most intense in the morning and states that she cannot lay on her back due to pain . She reports that she has developed some tingling along the rib cage and only slight pain into the buttock. She reports that her goal is to reduce her pain so she can standing longer. Reported Pain Level Pain Score 7: Self Report Assessment PT Clinical Summary Pt. is a 74 year old female who enters the clinic with a diagnosis of low back pain due to degenerative changes of the lumbar spine. She presents with impaired flexibility, impaired postural awareness, impaired proximal l.e. strength, impaired gait, pain and functional decline. Continued skilled PT is indicated in order to improve these areas to allow for improved comfort with IADL performance. Plan of Care Interventions Electrical Stimulation,Gait Training,Hot Pack/Cold Pack,Manual Therapy,Mechanical Traction,Neuro Re- education,Patient/Caregiver Education,Therapeutic Activities,Therapeutic Exercise PT Services Indicated Yes Treatment Frequency and 3x/week x 12 visits Duration These treatments will address the objective and functional deficits as defined above. The patient will be advanced safely and appropriately in order for the patient to progress towards his/her prior level of function. Additional exercises will be introduced and as well as a comprehensive home exercise program upon discharge, if needed, ?to ensure carryover of functional gains achieved in the clinic. This treatment plan has been reviewed and agreement upon by the patient.
--- NOTE | 2025-02-20 10:58 | OPREHPOC ---
Outpatient Therapy Plan of Care This is a Multidisciplinary Plan of Care that may contain components documented by all disciplines (PT, OT, and ST.) PT Problem 1 PT Problem #1 Knowledge Deficit PT Goal 1 Goal / Goal Update Pt. will be independent with a HEP addressing trunk mobility and l.e. flexibility. Target Visit 2 Progress Met PT Problem 2 PT Problem #2 Impaired Strength PT Goal 1 Goal / Goal Update Pt. will present with 5/5 gross l.e. strength -met Pt. will be able to stand for duration of 20 minutes in order to complete household IADL's -not met Target Visit 12 Progress Partially Met PT Problem 3 PT Problem #3 Impaired Functional Mobility PT Goal 1 Goal / Goal Update Pt. will be able to walk for a distance of 1000' or greater in 6 minutes indicating improved gait efficiency -met Pt. will be able to lift small object from the ground with safe mechanics for 5 reps without pain -met pt. will be able to sleep through the night without pain disturbance. -met, manages with Biofreeze and/or Tylenol Target Visit 12 Progress Met
--- NOTE | 2025-02-20 10:58 | PTOPDC ---
Assessment and note entered by Brielle Wolff, PT Evaluation Information Assessment Status Discharge ICD-10 Condition Codes (PT) Pain in low back M54.50,Radiculopathy, lumbar region M54.16 Onset 12/22/24 Subjective Information Kaelyn reports she's feeling much better after starting therapy. She is able to sleep better at night as long as she manages with biofreeze and/or Tylenol and notes being able to stand for 10 minutes to perform household tasks before needing to rest due to onset of pain. She is no longer using her cane for ambulation and she's been independent with her HEP and aquatic exercise. Reported Pain Level Pain Score 0: Self Report Assessment PT Clinical Summary Mrs. Barbour presents for her 6th skilled PT visit today addressing low back pain. Since beginning therapy she no longer has low back pain, is able to sleep through the night without disturbance with use of Tylenol and/or Biofreeze. She also demonstrates improvement in LE strength and ambulation efficiency, as has good awareness of body mechanics when lifting to minimize stress on her low back. She has met or partially met all therapeutic goals set for her and is appropriate for discharge from skilled PT this date. Plan of Care PT Services Indicated No
== END 2025-02-20 11:10 | disposition home or self-care (01) ==
LOC: CHSPT 12:49
PROVIDERS: PCP Internal Medicine; Visit Provider Internal Medicine
DX: M54.50 Low back pain, unspecified (principal); M54.16 Radiculopathy, lumbar region
CPT/HCPCS: 97014; 97110; 97112; 97140; 97161; G0283

== ENCOUNTER 2025-04-01 13:13 | Outpatient (CLI) | payer MEDICARE, OTHER, SELFPAY ==
--- NOTE | ~2025-04-01 | DEXA_ITS ---
Bone Density Report Name: ASIA TODD Age: 74 Sex: Female Ethnicity: White Date of : 1950 Indication: postmenopausal; screening for osteoporosis; height loss; asthma or emphysema; Referring Provider: Reza Esquivel Study: Bone densitometry was performed. Exam Date: April 01, 2025 Accession number: [id number] Bone Density: Region BMD T-score Z-score Classification AP Spine(L2, L3, L4) 1.429 3.2 5.7 Normal Femoral Neck (Left) 0.736 -1.0 1.1 Normal Total Hip (Left) 0.943 0.0 1.8 Normal Femoral Neck (Right) 0.697 -1.4 0.7 Osteopenia Total Hip (Right) 0.897 -0.4 1.4 Normal Femoral Neck Mean 0.716 -1.2 0.9 Osteopenia Total Hip Mean 0.920 -0.2 1.6 Normal World Health Organization criteria for BMD impression classify patients as: Normal (T-score at or above -1.0), Osteopenia (T-score between -1.0 and -2.5), or Osteoporosis (T-score at or below -2.5). 10-year Fracture Risk(1): Major Osteoporotic Fracture 9.9% Hip Fracture 1.7% Reported Risk Factors: [place] (), Neck BMD=0.697, BMI=33.2 (1) FRAX(R) Version 3.08. Fracture probability calculated for an untreated patient. Fracture probability may be lower if the patient has received treatment. Clinical Information Provided by Patient: Has the following medical conditions: Asthma or Emphysema Patient maximum height was 66 Menopause Age: 43 Onset of menses at age 13 Number of children 0 Impression: The patient has low bone mass, based on the Right Femoral Neck T-score. Discussion: BONE DENSITY IS LOW AT ONE OR MORE SKELETAL SITES. This patient's lowest T-score is low at one or more skeletal sites. It meets the World Health Organization's (WHO) criteria for ?low bone mass? (T-score between -1.0 and -2.5). The patient's 10-year risk of fracture as calculated by FRAX is less than the threshold where pharmacological therapy is recommended by the National Osteoporosis Foundation (NOF). However, all treatment decisions require clinical judgment and consideration of individual patient factors, including patient preferences, comorbidities, previous drug use, risk factors not captured in the FRAX model (e.g., frailty, falls, vitamin D deficiency, increased bone turnover, interval significant decline in bone density) and possible under or overestimation of fracture risk by FRAX. The patient should follow a healthful lifestyle (good nutrition with adequate calcium and vitamin D, and appropriate weight-bearing exercise). Follow-Up: Consider repeating this study in 2 to 3 years to reassess this patient's status, or sooner if there is some new clinical indication. Reported by: MIYA on 04/01/2025 1:56:00 PM. Reviewed, dictated and finalized at location A.
--- NOTE | ~2025-04-01 | MM_ITS ---
EXAMINATION: MM screening brian BI w rosanna HISTORY: Screening TECHNIQUE: Craniocaudal and mediolateral oblique 3-D tomosynthesis images were obtained and synthetic 2-D images were generated. CAD analysis was submitted and interpreted. COMPARISON: Comparison to multiple prior studies sequentially, with oldest reviewed study dated , 07/26/2012 BREAST PARENCHYMAL COMPOSITION: The breasts are almost entirely fatty. FINDINGS: There is no evidence of suspicious mass, calcification, or architectural distortion to suggest malignancy in either breast. IMPRESSION: 1. No mammographic evidence of malignancy. 2. Recommend routine screening mammography in one year. BI-RADS Category 1: Negative Reviewed, dictated and finalized at location B.
--- OUTSIDE RECORDS SUMMARY | 2025-04-01 13:54 | XMS_ITS | Clinical Summary ---
Author Organization [facility] Address [address], [address] [address] Phone Care Team Providers Care Director New Product Name Role Phone Reza Esquivel MD Primary Care Provider Allergies Active Allergy Reactions Criticality Noted Date [...] Colonoscopy 12/31/2022 12/31/2017 Colorectal Cancer Screening 12/31/2022 Influenza Immunization (#1) 2025 SARS-COV-2 Immunization ( - season) 2025 Respiratory Syncytial Virus (RSV) Immunization (Adult) [...] topic Insurance MEDICARE COMMERCIAL GENERIC Care Teams Director New Product Relationship Specialty Start Date End Date Reza Esquivel MD [address] [place] [address] PCP - General Internal Medicine 11/23/17
--- OUTSIDE RECORDS SUMMARY | 2025-04-01 13:54 | XMS_ITS | Clinical Summary ---
Author Organization [facility] [place] [address] [facility] [address] Address [address] [place] [address] Care Team Providers Care Employee Benefits Attorney Name Role Phone Reza Eqsuivel MD Primary Care Provider [phone] Kevin Perez MD Unavailable [phone] Allergies Active Allergy Reactions Criticality Noted [...] fluticasone propionate (FLONASE) 50 mcg/actuation nasal sprayIndications:Ac [place] recurrent maxillary sinusitis Administer 2 sprays into [...] 08/23/2023 Assessment & Plan (08/23/2023 2:10 PM COMPENSATION AND BENEFITS ADMINISTRATOR): Recheck Covid test in 3 days if symptoms persist Start Zpak if no improvement in sinus symptoms over the ext 3 days T-tube removed from the left ear today, finish ear drops Follow up in 4 months Cellulitis of nasal tip 07/11/2023 Assessment & Plan (07/11/2023 10:58 AM COMPENSATION AND BENEFITS ADMINISTRATOR): Stop Tobramycin Start Ciprofloxacin 7 drops into Left EAR, NOT EYE, twice daily for 10 days Nasal saline spray (Simply saline, Little Remedies, [place], [place]) 2 second sprays or 2 squeezes into [...] 06/22/2023 Assessment & Plan (08/23/2023 2:10 PM COMPENSATION AND BENEFITS ADMINISTRATOR): Recheck Covid test in 3 days if symptoms persist Start Zpak if no improvement in sinus symptoms over the ext 3 days T-tube removed from the left ear today, finish ear drops Follow up in 4 months Assessment & Plan (07/11/2023 10:58 AM COMPENSATION AND BENEFITS ADMINISTRATOR): Stop Tobramycin Start Ciprofloxacin 7 drops into Left EAR, NOT EYE, twice daily for 10 days Nasal saline spray (Simply saline, Little Remedies, [place], [place]) 2 second sprays or 2 squeezes into [...] day Assessment & Plan (06/22/2023 2:52 PM COMPENSATION AND BENEFITS ADMINISTRATOR): Tobradex 7 drops into LEFT EAR, NOT EYE, twice daily for 14 days Avoid ear cleaning techniques Avoid water to ears Nasal saline spray (Simply saline, Little Remedies, [place], [place]) 2 second sprays or 2 squeezes into [...] 07/12/20 Assessment & Plan (07/12/2022 12:14 PM COMPENSATION AND BENEFITS ADMINISTRATOR): Left myringotomy with T-tube placement in the [...] Nasal saline spray (Simply saline, Little Remedies, [place], [place]) 2 second sprays or 2 squeezes into [...] Astelin, Nasocort, Claritin-D or Sudafed and continue [facility] Assessment [...] tube Assessment & Plan (07/12/2022 10:27 AM COMPENSATION AND BENEFITS ADMINISTRATOR): Left myringotomy with T-tube placement in the [...] Astelin, Nasocort, Claritin-D or Sudafed and continue [facility] Follow up in 4-6 weeks to recheck left ear, if middle ear fluid still present and Conductive hearing loss noted on hearing test, will place ear tube in Office at that visit Assessment & Plan (12/05/2019 10:50 AM CDT): Hearing test - Dr. Melton in [place] Consider left ear tube placement at time [...] tube Assessment & Plan (08/28/2019 11:22 AM COMPENSATION AND BENEFITS ADMINISTRATOR): Doxcycline twice daily Diflucan if needed Take Probiotic Culturelle at a different meal [address] Sinus right before follow up Switch to Azelastine 2 sprays into each nostril twice daily Assessment & Plan (07/28/2019 3:09 PM COMPENSATION AND BENEFITS ADMINISTRATOR): Cefdinir with a meal daily for 21 days Nasal saline spray (Simply saline, Little Remedies, [place], [place]) 2 second sprays or 2 squeezes into [...] send for hearing test Coronary arteriosclerosis in [place] artery 04/14 Overview (10/26/2016): CAD in [place] artery Edema of lower extremity 04/14/2016 Overview [...] on file Legal Sex Female 12:14 PM COMPENSATION AND BENEFITS ADMINISTRATOR Gender Identity Not on file Sexual Orientation Not on file Obstetrics History Last Filed Vital Signs Vital Sign Reading Time Taken Comments Blood Pressure 127/82 12/24/2023 12:54 PM CDT Pulse 91 12/24/2023 12:54 PM CDT Temperature 36.6 C (97.8 F) 08/23/2023 1:45 PM COMPENSATION AND BENEFITS ADMINISTRATOR Respiratory Rate 18 12/24/2023 12:54 PM CDT [...] Colon Cancer Screening-Colonoscopy 01/03/2024 01/02/2014 Influenza Vaccine (#1) 2025 9, 05/06/2019, 04/09/2018, Additional history exists DTaP/Tdap/Td Vaccine [...] CDT PROCEDURE REPORT Patient: ASIA BARBOUR Account: [id number] Room No: : 1950 Patient Type: SDS [...] cancer in 5-10 years. Joseph Farnsworth M.D. AK/saeed TD: 01/03/2014 16:09 CC: Dr. Esquivel Authenticated by Joseph Farnsworth MD On 01/08/2014 05:05:38 PM us Historical Provider ENDOSCOPY PROCEDURES Berna l Result from Last 3 Months or Most Recently Relevant to Health Maintenance Insurance MEDICARE COMMERCIAL GENERIC MEDICARE COMMERCIAL GENERIC Advance Directives For more information, please contact: [phone] * Full Code (Latest Code Status on File) Date Activated Date Inactivated Comments 09/10/2019 4:24 AM 09/10/2019 9:09 PM Care Teams Employee Benefits Attorney Relationship Specialty Start Date End Date Reza Esquivel MD PCP - General 10/20/16 Kevin Perez MD Consulting Physician Cardiology 09/10/19
== END 2025-04-01 13:14 | disposition home or self-care (01) ==
PROVIDERS: PCP Internal Medicine; Visit Provider Internal Medicine
DX: Z12.31 Encounter for screening mammogram for malignant neoplasm of breast (principal); Z78.0 Asymptomatic menopausal state; M85.88 Other specified disorders of bone density and structure, other site
CPT/HCPCS: 77063; 77067; 77080